=== PATIENT | male | born 1955 ===

== ENCOUNTER 2025-03-29 06:25 | Day surgery (SDC) | payer MEDICARE, SELFPAY | END 2025-03-29 15:05 | disposition home or self-care (01) | LOC: GI 06:25 | PROVIDERS: ATTENDING PHYSICIAN Student in an Organized Health Care Education/Training Program | DX: Z12.11 Encounter for screening for malignant neoplasm of colon (principal); K57.30 Diverticulosis of large intestine without perforation or abscess without bleeding; D12.5 Benign neoplasm of sigmoid colon; D12.0 Benign neoplasm of cecum; D12.4 Benign neoplasm of descending colon; K63.5 Polyp of colon; Z86.0100 Personal history of colon polyps, unspecified | CPT/HCPCS: 45385; 88305 ==